=== PATIENT | male | born 1970 | race Caucasian/White ===

== ENCOUNTER 2022-08-12 07:04 | Outpatient (CLI) | payer OTHER, BC, SELFPAY ==
--- NOTE | 2022-08-12 07:15 | CRLHL7_ITS ---
For Patients: As a result of the Century Cures Act, medical imaging exams and procedure reports are released immediately into your electronic medical record. You may view this report before your referring provider. If you have questions, please contact your health care provider. Indication: NECK AND LEFT ARM PAIN Technique: Noncontrast sagittal T1, T2, STIR and axial GRE sequences are provided. Comparison: No prior studies available for comparison at this institution. Findings: Cervical alignment is anatomic. Vertebral body heights are maintained. No fracture. No prevertebral or paraspinal edema. The craniocervical junction is unremarkable. No aggressive osseous lesion. C1-2: No spinal canal stenosis C2-3: No significant spinal canal stenosis or neural foramen narrowing. C3-4: No significant spinal canal stenosis or neural foramen narrowing. C4-5: No significant spinal canal stenosis or neural foramen narrowing. C5-6: Mild disc bulge indents the ventral thecal sac without significant spinal canal stenosis. Minimal neural foramen narrowing bilaterally. C6-7: Small central disc protrusion indents the ventral thecal sac without significant spinal canal stenosis. No neural foramen narrowing C7-T1: No significant spinal canal stenosis or neural foramen narrowing. T1-T2: No significant spinal canal stenosis or neural foramen narrowing. Impression: 1. Normal alignment. No acute osseous abnormality. 2. Mild disc bulges at C5-6 and C6-7 without significant spinal canal stenosis. Minimal neural foramina narrowing at C5-6 bilaterally. 3. No abnormal spinal cord signal. Dictated by Jose Fernández MD @ 08/12/2022 1:45:25 PM (Electronically Signed)
== END 2022-08-12 07:05 | disposition home or self-care (01) ==
PROVIDERS: PCP Family Medicine; Visit Provider Family Medicine
DX: M54.2 Cervicalgia (principal); M79.602 Pain in left arm; M50.122 Cervical disc disorder at C5-C6 level with radiculopathy; M50.123 Cervical disc disorder at C6-C7 level with radiculopathy
CPT/HCPCS: 72141

== ENCOUNTER 2022-09-27 08:00 | Outpatient (RCR) | payer OTHER, BC, SELFPAY ==
--- NOTE | 2022-07-29 15:22 | PT.OPDN ---
[facility] Daily Note PT [facility] Daily Note Start: 04/01/22 08:04 Freq: Status: Active Protocol: Document 07/29/22 13:47 LSL (Rec: 07/29/22 14:32 LSL [id number]) E-signed By Ariadna Davies, PT PT OP Daily Progress Note Visit Information Note Type Daily Note Visit Number [id number] Insurance Authorized Visits 18 Physician Authorized Visits 18 Insurance Information Insurance Name [employer] Gonzalez Medical Diagnosis back pain Treating Diagnosis pain, spasm, weakness Referring MD Metcalf Subjective Subjective Pt. reports he's been doing his new neck stretches every day 2x/day and he is having a significant amount of soreness around the L scapula and down into the L deltoid region. I find myself not using my left arm it is so uncomfortable and difficulty sleeping so I take advil PM to help with that. Pain Comments 02/24 Precautions Treatment Precautions/Contraindications had marrow inflammation in R T3-4 and T4-5 facets in Feb Weight Bearing Status Full Weight Bearing Home Exercise Home Exercise Comments [facility]: [id number] BTB shoulder IR, ER, hor abd, row, extension, diagnols Objective Other/Pertinent Objective AROM - shoulder L R flexion 140 140 abduction 125 145 IR (HBB) T10 T8 ER 85 92 Cervical flexion WNL with pull into scapula, extension WNL, LLF 25% with pain into interscapular region, RLF WNL, B rotation 70% STRENGTH - L shoulder and elbow 5/5 except supraspinatus 4/5, R 5/5 throughout, Cervical 5/5, L 5th finger abd /add 4/5, wrist 5/5 throughout , [employer] L 116/120/111 R 136/139/132 Patient Instructed in Risks/Benefits Yes Therapeutic Exercise Therapeutic Exercise Minutes (minutes) 23 Therapeutic Exercise: To Restore review of stretches which he Functional Status is doing correctly however they are causing pain therefore told him to either hold them for now or only use as AROM without overpressure with measurements for PN. Other Interventions Provided Other Modalities Provided H-wave cervical radiculopathy protocol L UE Other Modalities Untimed Minutes 15 Treatment Minutes Untimed Code Treatment Minutes 15 Timed Code Treatment Minutes 23 Total Treatment Time 38 Billing Units Re-Evaluation Units 1 Electrical Stimulation Units 1 Assessment/Impression Assessment/Impression Full re-eval completed for PN today secondary to worsening of symptoms that had onset about 06/22/22. After adding a new exercise (6 lb. arnold press) he began to have pain later in the evening along the L scapula and into deltoid/ lateral upper arm, this continued without significant improvement over the last month even with modifying exercises to be less demanding . After adding cervical stretches last session his pain has worsened and appears to be a C7-8 radiculopathy with weakness in the abductor digiti minimi and lumbricals demonstrated today. Further evaluation of new symptoms that began after 06/22/22 therapy session is warranted at this time. Plan of Care Physical Therapy Goals SHORT TERM GOALS: (2-3 weeks) 1. Pt. to have 5/5 shoulder strength. 2. Pt. able to rotate L with pain less than 2/10. [facility] GOALS: (4+ weeks) 1. Pt. able to lift 50+ pounds , sometimes these are awkward shapes. 2. Pt. able to perform pushing and pulling tasks with pain less than 2/10. 3. Pt. able to reach with his R arm with pain less than 2/10 . Daily Plan of Care Change POC; See Comments
== END 2023-02-03 23:59 | disposition home or self-care (01) ==
PROVIDERS: PCP Family Medicine; Visit Provider Family Medicine
DX: M54.9 Dorsalgia, unspecified (principal); G24.9 Dystonia, unspecified; Z51.89 Encounter for other specified aftercare
CPT/HCPCS: 97032; 97110; 97140; 97161; 97164